=== PATIENT | male | born 1995 | race Caucasian/White ===

== ENCOUNTER 2018-04-25 16:41 | Emergency (ER) | payer OTHER, SELFPAY ==
[2018-04-25 16:41] VITALS: BP 136/85; PULSE 93; RESP 16; TEMP 37; O2SAT 95; BMI 23.6
--- NOTE | 2018-04-25 17:08 | RAD_ITS ---
STUDY: X-RAY - RIGHT ANKLE REASON FOR EXAM: Male, 22 years old. Fall, lateral right ankle pain and swelling. TECHNIQUE: 3 view(s) of the ankle. COMPARISON: None. FINDINGS: There is nondisplaced coronal fracture line through the posterior aspect of the distal tibia, best seen on the lateral view. Normal visualized distal fibula. Normal medial and lateral malleoli. Normal tibiotalar articulation and ankle mortise. Normal visualized talus and calcaneus. The visualized subtalar, talonavicular, calcaneocuboid and tarsal articulations are normal. There is lateral soft tissue swelling. RAD/Ankle min 3 Views IMPRESSION: Nondisplaced, coronal/longitudinal fracture posterior tibial malleolus, accompanied by lateral soft tissue swelling. Electronically Signed: Dg Fish MD at 17:46 EDT , Service support ,
[2018-04-25 18:14] VITALS: BP 130/70; PULSE 80; RESP 14; O2SAT 98
--- NOTE | 2018-04-25 18:46 | ED.RN ---
offereva ice. pt states had some on earlier and politely declines at this time
--- NOTE | 2018-04-25 18:49 | CT_ITS ---
STUDY: CT RIGHT ANKLE WITHOUT CONTRAST REASON FOR EXAM: Male, 22 years old. Fracture RADIATION DOSAGE (If Supplied By Facility): CTDIvol = ( 15.35 ) mGy, DLP = ( 488.08 ) mGycm TECHNIQUE: Thin section transaxial imaging of the ankle was obtained, with sagittal and coronal reconstructed images. Individualized dose optimization techniques were used for this CT. COMPARISON: None. FINDINGS: There is a minimally displaced fracture of the posterior malleolus with intra-articular extension. The remainder of the visualized osseous structures are intact. There is soft tissue swelling noted. There are no radiodense foreign bodies. CT/Extremity Lower without Contra IMPRESSION: Minimally displaced posterior malleolar fracture with intra-articular extension. Soft tissue swelling. Electronically Signed: Guillaume Jung, at 19:37 EDT Tel , Service support ,
[2018-04-25] MEDS: HYDROcodone Bitartrate/Apap 5/325 Tablet PO (18:53)
--- NOTE | 2018-04-25 21:14 | ED.DEP ---
ED Disposition - Plan for ED Patient: Chief Complaint: Lower Extremity Injury Instructions: ED Fx Ankle General Prescriptions: Hydrocodone Bitart/Apap 5-325 [[place] 5MG-325MG] 1 tablet PO Q6H PRN PRN 3 Days #10 tablet PRN Reason: Pain Referrals: Care Physician,No Primary [Primary Care Provider] - Guillaume Bruce MD [STAFF PHYSICIAN] -
--- NOTE | 2018-04-25 21:16 | DCINST.ED_ITS ---
ED Disposition - Plan for ED Patient: Chief Complaint: Lower Extremity Injury Instructions: ED Fx Ankle General Prescriptions: Hydrocodone Bitart/Apap 5-325 [[place] 5MG-325MG] 1 tablet PO Q6H PRN PRN 3 Days # 10 tablet PRN Reason: Pain Referrals: Care Physician,No Primary [Primary Care Provider] - Guillaume Bruce MD [STAFF PHYSICIAN] -
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
[2018-04-25 21:44] VITALS: BP 138/89; PULSE 67; RESP 15; O2SAT 96
== END 2018-04-25 21:45 | disposition home or self-care (01) ==
PROVIDERS: Emergency Provider Emergency Medicine
DX: S82.54XA Nondisplaced fracture of medial malleolus of right tibia, initial encounter for closed fracture (principal); Z72.0 Tobacco use; V18.0XXA Pedal cycle driver injured in noncollision transport accident in nontraffic accident, initial encounter; Y93.55 Activity, bike riding; Y92.89 Other specified places as the place of occurrence of the external cause; Y99.8 Other external cause status
CPT/HCPCS: 29515; 73610; 73700; 99284

== ENCOUNTER 2018-05-11 11:14 | Day surgery (SDC) | payer OTHER, SELFPAY ==
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
[2018-05-11] VITALS (7 sets, daily range): BP systolic 142–169; BP diastolic 73–96; PULSE 72–100; RESP 16–18; TEMP 36.3–37.6; O2SAT 98–100; BMI 23.6
[2018-05-11] MEDS: Cefazolin 2 GM in 0.9% Normal Saline 100 ML IV (13:05)
--- NOTE | 2018-05-11 13:10 | RAD_ITS ---
STUDY: X-RAY - RIGHT ANKLE REASON FOR EXAM: Male, 22 years old. Open reduction internal fixation TECHNIQUE: 6 view(s) of the ankle. COMPARISON: Prior study of 04/25/2018 FINDINGS: 6 intraoperative views demonstrate internal fixation with plate and multiple screws of previously noted posterior malleolar fracture. RAD/Ankle min 3 Views IMPRESSION: 6 intraoperative views demonstrate internal fixation with plate and multiple screws are previously noted posterior malleolar fracture of the distal tibia. Electronically Signed: Margarito Bush MD at 16:06 EDT , Service support ,
--- NOTE | 2018-05-11 16:15 | PCM.IMDPSTOP ---
Immediate Post-Op Note Date of Procedure: 05/11/18 Primary Surgeon/Physician: Farheen Meehan DPM tub attendant: Nima Nava Pre-Operative Diagnosis: 1. right posterior pilon variant fracture S82.391A Post-Operative Diagnosis: 1. right posterior pilon variant fracture S82.391D Surgery/Procedure Performed:: 1. ORIF R distal tibia 75190. 2. intraoperative fluoroscopy Description of Surgical Findings:: see dictation Estimated Blood Loss: 100 mL Specimen's removed: none Drains: none Type of Anesthesia:: General/Regional - R femoral popliteal block by anesthesia post operatively ASA Class: ASA1 Normal Healthy Patient - Admit VTE Documentation VTE Present on Admission: No VTE Mechan Device Prophylaxis: SCD's, Knee High RAQUEL Hose VTE Pharm Prophylaxis ordered?: Yes
--- NOTE | 2018-05-11 16:19 | OP.PN_ITS ---
Immediate Post-Op Note Date of Procedure: 05/11/18 Primary Surgeon/Physician: Farheen Meehan DPM air conditioning service technician: Nima Nava Pre-Operative Diagnosis: 1. right posterior pilon variant fracture S82.391A Post-Operative Diagnosis: 1. right posterior pilon variant fracture S82.391D Surgery/Procedure Performed:: 1. ORIF R distal tibia 76401. 2. intraoperative fluoroscopy Description of Surgical Findings:: see dictation Estimated Blood Loss: 100 mL Specimen's removed: none Drains: none Type of Anesthesia:: General/Regional - R femoral popliteal block by anesthesia post operatively ASA Class: ASA1 Normal Healthy Patient - Admit VTE Documentation VTE Present on Admission: No VTE Mechan Device Prophylaxis: SCD's, Knee High RAQUEL Hose VTE Pharm Prophylaxis ordered?: Yes
--- NOTE | 2018-05-11 16:21 | RAD_ITS ---
STUDY: X-RAY - RIGHT ANKLE REASON FOR EXAM: Male, 22 years old. Postop TECHNIQUE: 3 view(s) of the ankle. COMPARISON: Previous intraoperative views of earlier this date FINDINGS: There is demonstrated internal stabilization with fixation plate and multiple screws previously noted posterior malleolar fracture of the distal tibia. The fracture appears in good alignment. RAD/Ankle min 3 Views IMPRESSION: Internal stabilization with fixation plate and multiple screws or posterior malleolar fracture, which appears in good position. Electronically Signed: Margarito Bush MD at 16:37 EDT , Service support ,
--- NOTE | 2018-05-11 16:23 | PCM.DC.ORTHO ---
Discharge Activity: May Not Drive, May not drive while taking narcotic pain medications., Use Crutches Ice area for (Minutes): 20 - 20 minutes of each hour behind the right knee Weight Bearing Status: No weight bearing Keep extremity elevated above heart level: Right Leg Call your doctor if your incision/area has: Continuous Slow Oozing, Sudden Increased Bleeding, Increased Pain/ Swelling, Increased Redness, Foul Smelling Discharge Call your doctor if you observe: Fever of 101 or Higher, Inability to urinate, Inability to have a bowel movement, Shortness of breath, Chest pain Cleanse incision/area with: Keep Dressing Clean & Dry Additional Dressing/Incision Instructions:: Keep dressing clean, dry and intact. do not remove dressing. do not get wet, bird bath to shower Allergies/Adverse Reactions: Allergies No Known Allergies Allergy (Verified 05/07/18 09:52) Medications to take at Discharge Acetaminophen [Tylenol Extra Strength] 1,000 mg PO Q8H #90 tablet 05/11/18 Aspirin 325 mg PO BID #60 tablet 05/11/18 Oxycodone [Oxyir] 5 mg PO Q6H PRN PRN 05/11/18 Primary Care Physician: Care Physician,No Primary [Primary Care Provider] - Test Results: Test results from this visit will be discussed in further detail at your follow-up appointment, if applicable. Please Follow Up With: gin pickens dpm When: at your scheduled post operative appt next week Proposed Discharge Date: 05/11/18
--- NOTE | 2018-05-11 16:29 | DCINST_ITS ---
Discharge Activity: May Not Drive, May not drive while taking narcotic pain medications., Use Crutches Ice area for (Minutes): 20 - 20 minutes of each hour behind the right knee Weight Bearing Status: No weight bearing Keep extremity elevated above heart level: Right Leg Call your doctor if your incision/area has: Continuous Slow Oozing, Sudden Increased Bleeding, Increased Pain/ Swelling, Increased Redness, Foul Smelling Discharge Call your doctor if you observe: Fever of 101 or Higher, Inability to urinate, Inability to have a bowel movement, Shortness of breath, Chest pain Cleanse incision/area with: Keep Dressing Clean & Dry Additional Dressing/Incision Instructions:: Keep dressing clean, dry and intact. do not remove dressing. do not get wet, bird bath to shower Allergies/Adverse Reactions: Allergies No Known Allergies Allergy (Verified 05/07/18 09:52) Medications to take at Discharge Acetaminophen [Tylenol Extra Strength] 1,000 mg PO Q8H #90 tablet 05/11/18 Aspirin 325 mg PO BID #60 tablet 05/11/18 Oxycodone [Oxyir] 5 mg PO Q6H PRN PRN 05/11/18 Primary Care Physician: Care Physician,No Primary [Primary Care Provider] - Test Results: Test results from this visit will be discussed in further detail at your follow- up appointment, if applicable. Please Follow Up With: gin pickens dpm When: at your scheduled post operative appt next week Proposed Discharge Date: 05/11/18
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
== END 2018-05-11 17:37 | disposition home or self-care (01) ==
LOC: SDC 11:16 → AC 11:16
PROVIDERS: Referring Provider Podiatrist Foot & Ankle Surgery; Visit Provider Podiatrist Foot & Ankle Surgery
PROC: (CPT 27827; principal; 2018-05-11 12:50)
DX: S82.391A Other fracture of lower end of right tibia, initial encounter for closed fracture (principal); F17.200 Nicotine dependence, unspecified, uncomplicated; Z79.891 Long term (current) use of opiate analgesic; X50.1XXA Overexertion from prolonged static or awkward postures, initial encounter; Y93.55 Activity, bike riding; Y92.89 Other specified places as the place of occurrence of the external cause; Y99.8 Other external cause status
CPT/HCPCS: 27827; 73610; 76000; C1713; J7120; J2405

== ENCOUNTER 2018-05-12 04:36 | Emergency (ER) | payer OTHER, SELFPAY ==
[2018-05-12 04:38] VITALS: BP 144/78; PULSE 79; RESP 16; TEMP 37; O2SAT 94; BMI 23.4
[2018-05-12] MEDS: DiphenhydrAMINE 25 MG Capsule PO (04:50)
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
[2018-05-12 05:43] VITALS: BP 125/78; PULSE 78; RESP 16; O2SAT 98
== END 2018-05-12 05:47 | disposition home or self-care (01) ==
PROVIDERS: Emergency Provider Emergency Medicine
DX: R20.2 Paresthesia of skin (principal); T40.2X5A Adverse effect of other opioids, initial encounter; Z79.82 Long term (current) use of aspirin; Z79.891 Long term (current) use of opiate analgesic; Y92.009 Unspecified place in unspecified non-institutional (private) residence as the place of occurrence of the external cause; Z98.890 Other specified postprocedural states
CPT/HCPCS: 99284